=== PATIENT | male | born 1945 | race Caucasian/White ===

== ENCOUNTER 2018-04-26 23:02 | Inpatient (IN) | payer MEDICARE ==
[~2018-04-26] VITALS: Ht 185.4 cm; Wt 100.7 kg
[~2018-04-26 23:02] MED LIST: GLUCOTROL10 MG PO; GLUMETZA500 PO; PRINIVIL20 M1 PO; PRINIVIL20 MG PO; SIMVASTATIN40 MG; VERAPAMIL ER240 MG PO; VICTOZA0.6 MG/0.1
[2018-04-26 23:06] VITALS: BP 141/51
[2018-04-26] MEDS ORDERED: POTASSIUM20 PO (23:17)
[2018-04-26] MEDS ORDERED: CARDIZEM CD180 MG PO (23:18)
[2018-04-26] MEDS ORDERED: ZANTAC 150MG T150 MG PO (23:18)
[2018-04-26] MEDS ORDERED: SIMVASTATIN40 MG PO (23:21)
[2018-04-26 23:23] LABS: HEMATOCRIT 44.5 % (42.0-52.0); HEMOGLOBIN 14.9 gm/dL (14.0-18.0); MCH 31.5 pg (26.0-34.0); MCHC 33.5 g/dL (28.0-37.0); MCV 93.9 fL (80.0-100.0); MPV 11.7 fl. (7.2-11.1); NUCLEATED RBCS 0 /100WBC; PLATELET COUNT* 185 thou/uL (150-400); RBC 4.74 mil/uL (4.50-6.00); RDW-CV 13.7 % (10.5-14.5); WBC 16.2 thou/uL (4.0-11.0)
[2018-04-26 23:38] LABS: ANION GAP 3 mmol/L (7-16); BUN 13 mg/dL (7-18); CALCIUM 9.3 mg/dL (8.5-10.1); CHLORIDE 98 mmol/L (98-107); CO2 34 mmol/L (21-32); CREATININE 1.1 mg/dL (0.6-1.3); GLUCOSE 266 mg/dL (70-99); POTASSIUM 3.9 mmol/L (3.5-5.1); SODIUM 135 mmol/L (136-145)
[2018-04-26 23:43] LABS: ALBUMIN 3.5 g/dL (3.4-5.0); ALKALINE PHOSPHATASE 252 U/L (46-116); LIPASE 85 U/L (73-393); MAGNESIUM 1.4 mg/dL (1.8-2.4); NT-PRO BRAIN NAT PEPTIDE 70 pg/mL (<300); SGOT 256 U/L (15-37); SGPT 197 U/L (30-65); TOTAL BILIRUBIN 1.1 mg/dL (<0.1-1.0); TOTAL PROTEIN 6.9 g/dL (6.4-8.2); TROPONIN-I LEVEL <0.06 ng/mL (<0.06)
[2018-04-27] VITALS (7 sets, daily range): BP systolic 114–153; BP diastolic 38–67
[2018-04-27 01:08] LABS: ABSOLUTE LYMPHOCYTES 1.3 thou/uL (0.8-5.3); ABSOLUTE MONOCYTES 1.3 thou/uL (0.0-1.2); ABSOLUTE NEUTROPHILS 13.6 thou/uL (1.6-8.1)
[2018-04-27 01:10] LABS: PLATELET ESTIMATE ADEQUATE
[2018-04-27 01:11] LABS: LARGE PLATELETS FEW
[2018-04-27] MEDS ORDERED: CHLORTHALIDONE25 MG PO (06:41)
--- NOTE | 2018-04-27 12:05 | EKG ---
[place] [address] ELECTROCARDIOGRAM REPORT Name: TIERA SMYTH Room: [address] IN 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1945 Requested By: aClderon May Order Number: [id number] MD: Niko Cat Measurements Intervals [place] Rate: 59 P: 0 ME: 55 QRS: 71 QRSD: 157 T: 48 QT: 458 QTc: 454 Interpretive Statements Sinus rhythm Short ME interval Nonspecific intraventricular conduction delay Artifact in lead(s) II,III,aVR,aVL,aVF Compared to ECG 06/26/2012 08:32:37 Short ME interval now present Intraventricular conduction delay now present Sinus bradycardia no longer present Left ventricular hypertrophy no longer present Electronically Signed On 04-27-2018 12:05:30 CDT by Niko Cat [email or web address] <ELECTRONICALLY SIGNED> By: Niko Cat MD, FAC 04/27/18 1205 2314 2314 Niko Cat MD, [facility] /EPI
--- NOTE | 2018-04-27 12:06 | EKG ---
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1945 Requested By: Calderon May Order Number: [id number] Reading MD: Niko Cat Measurements Intervals [place] Rate: 58 P: -1 MN: 188 QRS: -20 QRSD: 100 T: 19 QT: 455 QTc: 447 Interpretive Statements Sinus rhythm Borderline left axis deviation Abnormal R-wave progression, early transition Compared to ECG 06/26/2012 08:32:37 Sinus bradycardia no longer present Left ventricular hypertrophy no longer present Electronically Signed On 04-27-2018 12:05:45 CDT by Niko Cat [email or web address] <ELECTRONICALLY SIGNED> By: Niko Cat MD, FACC 04/27/18 1205 2322 2322 Niko Cat MD, FAC /EPI
[2018-04-28] VITALS: BP 111/45
[2018-04-28 04:00] VITALS: BP 118/52
[2018-04-28 05:08] LABS: HEMATOCRIT 42.7 % (42.0-52.0); HEMOGLOBIN 14.1 gm/dL (14.0-18.0); MCH 31.4 pg (26.0-34.0); MPV 12.7 fl. (7.2-11.1); RBC 4.5 mil/uL (4.50-6.00); RDW-CV 13.8 % (10.5-14.5); WBC 8.2 thou/uL (4.0-11.0)
[2018-04-28 05:33] LABS: ALBUMIN 2.9 g/dL (3.4-5.0); CALCIUM 8.6 mg/dL (8.5-10.1); CREATININE 1.1 mg/dL (0.6-1.3); MAGNESIUM 1.6 mg/dL (1.8-2.4); POTASSIUM 3.8 mmol/L (3.5-5.1); TOTAL PROTEIN 5.5 g/dL (6.4-8.2)
[2018-04-28 08:25] VITALS: BP 120/57
[2018-04-28 11:43] VITALS: BP 122/61
[2018-04-28 14:30] LABS: INR 1.1
--- NOTE | 2018-04-28 19:21 | CARDNUC ---
[place] [address] CARDIAC NUCLEAR IMAGING REPORT Name: TIERA SMYTH Room: [address] IN [facility]#: [id number] Admission: 04/27/18 Attend Phys: Cordell Aguila Discharge: Date of : 45 Date of Service: 04/28/181920 Report #: [id number] THIS REPORT FOR: //name// APPROVED REPORT Study performed: 04/27/2018 11:59:00 Indication: Chest pain Patient Location: In-Patient Room #: 207 Stress Tech: She Rodriguez Stress Nurse: Juhi Hinojosa RN Ht: 6 ft 1 in Wt: 232 lbs BSA: 2.29 m2 BMI: 30.60 Medical History Medical History: Diabetes, HTN, Hyperlipidemia Medications: atorvastatin, diltiazem, lisinopril, asa Allergies: PCN Cardiac Risk Factors: Age, DM, HTN, Hyperlipidemia Exercise History: Sedentary Meds Held (24 hrs): - Resting Data Rest SPECT myocardial perfusion imaging was performed in supine position 45 minutes following the intravenous injection of 11.3 mCi of Tc-99m Sestamibi. Time of rest injection: 1450 Date: 04/28/2018 The images were gated to evaluate regional wall motion and calculate left ventricular ejection fraction. Administration Route: IV Administration Site: Right AC Pharmacologic Stress Pharmacologic stress test was performed by injecting Regadenoson 0.4 mg IV push over 10-15 seconds immediately followed by the intravenous injection of 33.5 mCi of Tc-99m Sestamibi. Time of stress injection: 1650 Date: 04/28/2018 Administration Route: IV Administration Site: Right AC Gated Stress SPECT was performed 45 minutes after stress injection. The images were gated to evaluate regional wall motion and calculate left [place] [address] CARDIAC NUCLEAR IMAGING REPORT Name: TIERA SMYTH Room: [address] IN ..#: [id number] Admission: 04/27/18 Attend Phys: Cordell Aguila Discharge: Date of : 45 Date of Service: 04/28/181920 Report #: [id number] Stress Test Details Stress Test: Pharmacologic stress testing performed using 0.4 mg of regadenoson per 5 mL given IV over 10 seconds. Reason for pharmacologic stress test: physical limitation. HR Max Heart Rate (APMHR): 148 bpm Resting HR: 65 bpm Target HR (85% APMHR): 125 bpm Max HR Achieved: 93 bpm % of APMHR: 62 Recovery HR: 78 bpm BP Resting BP: 135/68 mmHg Recovery BP: 122/59 mmHg ECG Resting ECG: Sinus Rhythm Stress ECG: Sinus Rhythm ST Change: None Arrhythmia: None Recovery ECG: Sinus Rhythm Recovery ST Change: None Recovery Arrhythmia: None Clinical Reason for Termination: Completed protocol Stress Symptoms: None Exercise duration: 0 min sec Exercise capacity: 1.0 METs Patient had no significant symptoms with Lexiscan infusion. Stress ECG Conclusion The baseline 12-lead EKG show sinus rhythm with no significant ST or T wave abnormalities. EKGs obtained during and post Lexiscan infusion show sinus rhythm with no significant ST or T wave changes when compared to baseline. There were no stress-induced arrhythmias. Study Quality Study: Good Artifact: No artifact Study Data At rest, the left ventricular ejection fraction was 75%.. Post stress, the left ventricular ejection was 77%.. [place] [address] CARDIAC NUCLEAR IMAGING REPORT Name: TIERA SMYTH Room: [address] IN [facility].#: [id number] Admission: 04/27/18 Attend Phys: Cordell Aguila Discharge: Date of : 45 Date of Service: 04/28/18 192 Report #: [id number] TID = 0.98. Perfusion Normal left ventricular perfusion. Wall Motion Normal left ventricular wall motion. Nuclear Conclusion ECG Findings: negative for ischemia Clinical Findings: negative for ischemia Nuclear Findings: negative for ischemia Exercise Capacity: not assessed Left Ventricular Function: normal Risk Study: low Myocardial perfusion images show uniform uptake of the radioisotope throughout the myocardium. There were no defects to suggest infarct or ischemia. Left ventricular systolic function appears normal on gated studies. This is a low risk study. <Conclusion> The baseline 12-lead EKG show sinus rhythm with no significant ST or T wave abnormalities. EKGs obtained during and post Lexiscan infusion show sinus rhythm with no significant ST or T wave changes when compared to baseline. There were no stress-induced arrhythmias. <ELECTRONICALLY SIGNED> By: Philip Rothman MD, FACC 04/28/181920 20 20 Philip Rothman MD, FACC /INF
[2018-04-28 20:00] VITALS: BP 136/63
[2018-04-29] VITALS (7 sets, daily range): BP systolic 120–139; BP diastolic 54–76
[2018-04-29 04:23] LABS: HEMATOCRIT 44.7 % (42.0-52.0); HEMOGLOBIN 14.9 gm/dL (14.0-18.0); MCH 31.5 pg (26.0-34.0); MCHC 33.4 g/dL (28.0-37.0); MCV 94.2 fL (80.0-100.0); RBC 4.74 mil/uL (4.50-6.00); RDW-CV 13.9 % (10.5-14.5); WBC 7.4 thou/uL (4.0-11.0)
[2018-04-29 04:38] LABS: CALCIUM 8.8 mg/dL (8.5-10.1); CREATININE 1.2 mg/dL (0.6-1.3); POTASSIUM 3.3 mmol/L (3.5-5.1); TOTAL BILIRUBIN 1.2 mg/dL (<0.1-1.0); TOTAL PROTEIN 6.5 g/dL (6.4-8.2)
[2018-04-29 04:42] LABS: DIRECT BILIRUBIN 0.8 mg/dL (<0.1-0.3); MAGNESIUM 1.8 mg/dL (1.8-2.4); PHOSPHORUS* 3.3 mg/dL (2.5-4.9)
[2018-04-30] VITALS: BP 116/50
[2018-04-30 05:07] LABS: HEMOGLOBIN 14.4 gm/dL (14.0-18.0); MCH 30.8 pg (26.0-34.0); MCHC 32.7 g/dL (28.0-37.0); MCV 94.2 fL (80.0-100.0); MPV 12.6 fl. (7.2-11.1); RBC 4.67 mil/uL (4.50-6.00); RDW-CV 13.7 % (10.5-14.5); WBC 9.5 thou/uL (4.0-11.0)
[2018-04-30 06:00] LABS: ALBUMIN 2.8 g/dL (3.4-5.0); CALCIUM 8.3 mg/dL (8.5-10.1); CREATININE 1.5 mg/dL (0.6-1.3); MAGNESIUM 1.9 mg/dL (1.8-2.4); POTASSIUM 3.9 mmol/L (3.5-5.1); TOTAL BILIRUBIN 0.8 mg/dL (<0.1-1.0); TOTAL PROTEIN 5.7 g/dL (6.4-8.2)
--- NOTE | 2018-04-30 07:29 | OP ---
[address] [address] OPERATIVE REPORT Name: TIERA SMYTH Room: [address] IN M.R.#: [id number] Admission: 04/27/18 Attend Phys: Bessie Harper Discharge: Date of : 45 Report #: [id number] THIS REPORT FOR: //name// CC: Leroy Aguila DICTATED BY: Jc Turner DO DATE OF SERVICE: 04/29/2018 PREOPERATIVE DIAGNOSES: Cholelithiasis, cholecystitis, possible obstruction. POSTOPERATIVE DIAGNOSES: Cholelithiasis, cholecystitis, possible obstruction. SURGEONS: Nancy Mercado DO; Jc Turner DO. CITY ROUTEMAN: Pepe Rust, PGY4. OPERATION PERFORMED: Laparoscopic cholecystectomy with intraoperative cholangiogram and surgeon interpretation of images. ANESTHESIA: General and local. ESTIMATED BLOOD LOSS: 10 mL. SPECIMEN REMOVED: Gallbladder. COMPLICATIONS: None. DISPOSITION: PACU to floor FLUOROSCOPY TIME: 55 seconds. INDICATIONS: The patient is a pleasant 72-year-old male that presented to [facility] with acute right upper quadrant and midepigastric abdominal pain. At the time of admission, his LFTs were all elevated. Workup did reveal cholelithiasis and further workup including MRCP showed cholelithiasis and cholecystitis without any evidence of biliary ductal dilation. The plan at that time was to go to the operating room for laparoscopic cholecystectomy with intraoperative cholangiogram. Risks and complications discussed include bleeding, infection, injury to surrounding structures, risk of anesthesia, possibility of needing a postoperative ERCP if the stones were to be found in the biliary ducts, and a possible open procedure. The patient acknowledged understanding of risks and agreed to proceed with surgery. The patient was then consented [place] [address] OPERATIVE REPORT Name: TIERA SMYTH Room: [address] IN [facility]#: [id number] Admission: 04/27/18 Attend Phys: Bessie Harper Discharge: Date of : 45 Report #: [id number] placed in supine position. SCDs placed on bilateral lower extremities. The patient had been on both Levaquin and Flagyl preoperatively for suspicion of cholecystitis and those antibiotics were discontinued. Safety belt was placed over the patient's waist. Anesthesia was administered without any complication. The patient was then prepped and draped in the standard sterile fashion. Timeout was performed to confirm the patient and procedure. An 11 blade scalpel was used to make a supraumbilical incision in a vertical fashion. Cautery was used for hemostasis. S retractors were used to bluntly dissect down to the level of the fascia. Fascia was grasped between 2 Kochers and scored with electrocautery. Cleo clamp was then inserted to bluntly enter the peritoneum. Two stitches of 0 Vicryl were placed on either side of the fascia. A 10 mm Saulo trocar was then inserted into the abdomen. Insufflation was then initiated without any complication. The camera was inserted into the abdomen. Intra-abdominal contents were inspected. The gallbladder could not be seen as it was underneath the liver and a layer of omentum. A second 12 mm port was placed subxiphoid under direct visualization. Grasper was then used to sweep the omentum caudad and the gallbladder could easily be seen at that time. Two other 5 mm trocars were then placed in the right upper quadrant under direct visualization. The gallbladder was elevated and it was clear at the time that it was acutely inflamed indicating cholecystitis. A needle was used to aspirate the gallbladder and 20 mL of purulent fluid were aspirated. After aspiration, the gallbladder was elevated and attention was turned towards the dissection and electrocautery was used to score some of the fat near Leroy's pouch. The fat was swept away revealing structures that were consistent with both duct and artery. These structures were easily freed up and a [place] dissector was easily passed behind these two structures. However, dissection was carried out further posterior to these structures to ensure that there were no other structures going into the gallbladder. After further dissection, both the artery and the cystic duct were easily seen going up into the gallbladder. In order to perform the cholangiogram, the cystic artery had to be clipped and cut prior to cholangiogram. A Alex clamp was then placed over the base of the gallbladder and needle was inserted into the cystic duct, normal saline was flushed easily and then the C-arm was brought in and fluoroscopy was initiated. Once fluoroscopy was in correct position, the contrast was injected into the cystic duct. Contrast could be seen moving down from the cystic duct down into the common bile duct and the duodenum. No stones were seen in the common bile duct or cystic duct. Clamp was then removed along with the catheter. Total fluoroscopy time was 55 seconds. The cystic duct was then clipped twice proximally and twice distally and cut with scissors. Hook cautery was then used to dissect the gallbladder up off the liver and to also ensure hemostasis. Once the gallbladder was removed, it was placed into a laparoscopic EndoCatch bag and attention was turned to the bed of the liver. There were some areas of spot bleeding, which were cauterized and complete hemostasis was assured. One sheet of Surgicel was also placed into the previous gallbladder fossa to [place] [address] OPERATIVE REPORT Name: TIERA SMYTH Room: [address] IN M.R.#: [id number] Admission: 04/27/18 Attend Phys: Bessie Harper Discharge: Date of : 45 Report #: [id number] again ensure hemostasis. Subxiphoid and right upper quadrant ports were removed under direct visualization and insufflation was released from the abdomen. Once hemostasis was ensured, the camera was removed from the abdomen. Due to the size of the gallbladder and its contents, it was difficult to remove through the supraumbilical incision. This incision had to be extended down to the level of the fascia and the gallbladder was removed. There was also an umbilical hernia that was noted. The hernia contents were removed from the umbilicus and pushed back into the abdomen. This fascia was cleaned off and the supraumbilical fascia was closed with 3 stitches of 0 Vicryl in a poodhe-eo-agybr fashion, 3-0 Vicryl was used to close the subcutaneous tissue at the supraumbilical incision and the subxiphoid incision. All skin incisions were closed with 4-0 Monocryl. Sterile dressings were applied over top. The patient tolerated the procedure well. Counts were correct x 2 at the end of the case. The patient was awoken from anesthesia without any complication and transferred to PACU in stable condition. <ELECTRONICALLY SIGNED> By: Nancy Mercado DO 04/30/18 0729 1638 1721Ccristhian Mercado DO /nt
[2018-04-30 08:00] VITALS: BP 116/44
[2018-04-30 15:52] VITALS: BP 117/48
--- NOTE | 2018-04-30 16:41 | CON ---
[address] [address] CONSULTATION Name: TIERA SMYTH Room: [address] IN M.R.#: [id number] Admission: 04/27/18 Attend Phys: Bessie Harper Discharge: Date of : 45 Report #: [id number] THIS REPORT FOR: //name// CC: Leroy Aguila DATE OF SERVICE: 04/28/2018 ADDENDUM: The patient with history of diabetes who has elevated liver function tests and thrombocytopenia. He had presented with chest pain, epigastric pain, and symptoms of nausea and vomiting, which have resolved. Since admission, he had an MRI of the abdomen, which revealed cholelithiasis and evidence of cholecystitis. There is no evidence of ductal dilatation or choledocholithiasis. The patient currently is going down for a stress test. He will need to treat his cholecystitis with antibiotics initially and then undergo laparoscopic cholecystectomy. We will talk to our surgical colleagues in reference to this. <ELECTRONICALLY SIGNED> By: Steffi Richardson MD 04/30/18 1641 1529 2217Steffi Richardson MD /nt
--- NOTE | 2018-04-30 16:41 | CON ---
[address] [address] CONSULTATION Name: TIERA SMYTH Room: [address] IN M.R.#: [id number] Admission: 04/27/18 Attend Phys: Bessie Harper Discharge: Date of : 45 Report #: [id number] THIS REPORT FOR: //name// CC: Leroy Aguila DICTATED BY: Bibiana CARPENTERP DATE OF SERVICE: 04/28/2018 Please note at the time of this dictation, the patient was seen and physically examined by myself. REASON FOR CONSULTATION: Nausea, vomiting, epigastric pain, and elevated LFTs. HISTORY OF PRESENT ILLNESS: This is a 72-year-old male presented with chief complaint of having chest pain and upper abdominal discomfort. He states it began while he was at rest. He states he does not worsen or improve with eating and he has had several of these episodes that had been self-resolving, but less severe, this one was more intense. He has not complained of any further nausea or vomiting. He denied any hematemesis or bright red blood with that and his pain has improved as well. However, on admission, his liver enzymes were slightly elevated. Total bilirubin at that admission was 1.1 and that has elevated over the last 24 hours. The patient has never had an EGD done. He does not complain of any acid reflux at this time. He had a colonoscopy he said 20 plus years ago and he says everything was okay at that time. ALLERGIES: PENICILLIN. HOME MEDICATIONS: Include aspirin, simvastatin, Zantac, Cardizem, K-Dur, metformin and lisinopril. PAST MEDICAL HISTORY: Diabetes, hypertension. PAST SURGICAL HISTORY: Vein stripping. FAMILY HISTORY: Negative for any GI or female cancers. SOCIAL HISTORY: . Denies any alcohol, tobacco or illegal drug use. REVIEW OF SYSTEMS: Twelve-point review of systems is essentially negative except what is mentioned in the HPI. PHYSICAL EXAMINATION: VITAL SIGNS: Temperature 36.7, pulse 56, respirations 20, [place] [address] CONSULTATION Name: TIERA SMYTH Room: [address] IN [facility]#: [id number] Admission: 04/27/18 Attend Phys: Bessie Harper Discharge: Date of : 45 Report #: [id number] 122/61. HEART: Regular rate and rhythm. LUNGS: Clear. ABDOMEN: Soft, positive bowel sounds in all 4 quadrants with no masses or tenderness noted at this time. He denies also any NSAID use. LABORATORY DATA: Hemoglobin 14.1, hematocrit 42.7, white count is 8.2, platelets 145. Sodium 141, potassium 3.8, chloride 103, CO2 36, BUN is 10, creatinine 1.1, GFR 66, glucose is 130. PT/INR pending. Total bilirubin on admission was 1.1, is now 3. Alkaline phosphatase on admission 252, is 251. ALT on admission 197, is 258 and AST was 256, he is down to 136. Ultrasound showed cholecystitis with gallbladder wall thickening and edema. CT showed no ductal dilatation, questionable stones in the gallbladder wall was similar to ultrasound imaging. There was also noted along the margin of the gallbladder, a nodule of 1.1 cm. IMPRESSION: 1. Epigastric and chest pain. 2. Nausea and vomiting, which is improved. 3. Elevated liver function tests. 4. Thrombocytopenia. PLAN: 1. Stress pending today at 1600. 2. MRCP to fully evaluate his elevation in his LFTs. 3. PT and INR. 4. Further recommendations to be made once the stress test has been performed. Thank you for allowing us to participate in this patient's care. Please do not hesitate to call with any questions in regard to this consult. ADDENDUM: The patient with history of diabetes who has elevated liver function tests and thrombocytopenia. He had presented with chest pain, epigastric pain, and symptoms of nausea and vomiting, which have resolved. Since admission, he had an MRI of the abdomen, which revealed cholelithiasis and evidence of cholecystitis. There is no evidence of ductal dilatation or choledocholithiasis. The patient currently is going down for a stress test. He will need to treat his cholecystitis with antibiotics initially and then undergo laparoscopic cholecystectomy. We will talk to our surgical colleagues in reference to this. <ELECTRONICALLY SIGNED> By: Steffi Richardson MD 04/30/18 1641 1259 1322Steffi Richardson MD /nt
[2018-04-30 20:00] VITALS: BP 143/63
[2018-05-01 04:00] VITALS: BP 101/35
[2018-05-01 04:24] LABS: CALCIUM 7.8 mg/dL (8.5-10.1); CREATININE 1.6 mg/dL (0.6-1.3); MAGNESIUM 1.9 mg/dL (1.8-2.4); POTASSIUM 3.9 mmol/L (3.5-5.1)
[2018-05-01 08:00] VITALS: BP 121/45
[2018-05-01] MEDS ORDERED: COLACE100 MG PO (08:12)
[2018-05-01] MEDS ORDERED: ASPIR 8181 MG PO (08:12)
[2018-05-01 10:05] VITALS: BP 121/45
[2018-05-01] MEDS ORDERED: HYDROCODON-ACE1 EA11 PO (10:08)
--- NOTE | 2018-05-06 07:49 | PATH ---
[address] [address] PATHOLOGY RPT PROCEDURE Name: JEFFERY NEAL Room: [address] IN M.R.#: [id number] Admission: 04/27/18 Date of : 45 Discharge: 05/01/18 Report #: [id number] Path Case #: [id number] [facility] Accession Number: [id number] . 01 Material submitted: . GALLBLADDER WITH CONTENTS . 01 Clinical history: . Cholelithiasis . 02 Diagnosis: Gallbladder "gallbladder with contents, cholecystectomy": - Moderate chronic cholecystitis arising in the background of subacute cholecystitis. - Cholelithiasis. . (SHA:mml; 05/01/18) [facility]/05/01/2018 . 02 Electronically signed: . Benji Knight MD, Pathologist NPI- [id number] . 01 Gross description: . Received in formalin labeled "Jeffery Neal, gallbladder w/ contents," is an intact gallbladder measuring 10.1 x 5.0 x 3.6 cm in greatest dimensions. The serosal surface is smooth to shaggy and pink-baltazar to dark brown and partially fibroadipose-covered in appearance. Opening the specimen reveals a granular, light yellow-baltazar mucosal surface with an average wall thickness of 0.1 cm. A granular, yellow-baltazar sludge is present inside the specimen that is partially adherent to the mucosal surface. A single granular, dark brown calculus is noted, measuring 0.6 cm in maximum dimension. No lesions or polyps are identified grossly. Men'S Designer sections of the infundibulum, body and fundus are submitted in cassette A1. (DAC; 04/30/2018) XDC/XDC . 02 Pathologist provided ICD-10: K80.12 . 02 CPT . 579416 Performed at: [address] [id number] MD Ramon Jensen MD Phone: [phone] Performed at: 02 [place] [address] PATHOLOGY RPT PROCEDURE Name: JEFFERY NEAL Jakub Room: [address] IN M.R.#: [id number] Admission: 04/27/18 Date of : 45 Discharge: 05/01/18 Report #: [id number] Path Case #: [id number] [facility] [address] [place] [id number] MD Bala Oliva MD Phone: [phone]
--- NOTE | 2018-05-15 10:52 | CON ---
[address] [address] CONSULTATION Name: TIERA SMYTH Room: [address] IN M.R.#: [id number] Admission: 04/27/18 Attend Phys: Bessie Harper Discharge: 05/01/18 Date of : 45 Report #: [id number] THIS REPORT FOR: //name// CC: Leroy Aguila DATE OF SERVICE: 04/27/2018 REQUESTING PHYSICIAN: Cordell Aguila DO REASON FOR CONSULTATION: Chest pain. HISTORY OF PRESENT ILLNESS: The patient is a 72-year-old male who has insulin requiring diabetes, presents with a central episode of chest discomfort, rather severe in nature, 7-8/10. It would radiate downward to his stomach. It was associated with mild diaphoresis, but he was not short of breath or having any palpitations. It lasted about 30 minutes long. He went to the Emergency Room and his symptoms had mostly resolved and his presenting ECG was unremarkable. Because of his risk factors, he was admitted. Cardiac troponin level this morning is normal and currently he is asymptomatic. Overnight on telemetry he has been in a sinus rhythm. Historically he denies exertional chest pain, pressure, shortness of breath or edema. He has no documented history of heart disease. He does have numerous cardiovascular risk factors. PAST MEDICAL HISTORY: Significant for diabetes mellitus, hypertension, hyperlipidemia. HOME MEDICATIONS: Include metformin, Glumetza 2 grams p.o. b.i.d.; potassium chloride 20 mEq daily, Cardizem 180 mg daily, ranitidine 150 mg daily, Zocor 40 mg daily, lisinopril 20 mg daily, and chlorthalidone 25 mg daily. PAST SURGICAL HISTORY: He had a thrombectomy surgery about 23 years ago. SOCIAL HISTORY: He is a former smoker, does not drink. REVIEW OF SYSTEMS: GASTROINTESTINAL: No hematemesis or melena. GENITOURINARY: No dysuria or hematuria. CARDIOVASCULAR: No exertional chest pressure, sinus, but has shortness of breath. [place] [address] CONSULTATION Name: TEIRA SMYTH Room: [address]#: [id number] Admission: 04/27/18 Attend Phys: Bessie Harper Discharge: 05/01/18 Date of : 45 Report #: [id number] NEUROLOGIC: Denies headaches, blurry vision, slurred speech, numbness. HEMATOLOGIC: No anemia. GENERAL: No fevers or chills. PULMONARY: No history of emphysema. ENDOCRINE: Positive diabetes. No history of thyroid disease. Positive hyperlipidemia. PHYSICAL EXAMINATION: VITAL SIGNS: Blood pressure is 117/57, pulse is 66, O2 sat 95% on 2 liters. GENERAL: This is a pleasant elderly male who is alert, in no apparent distress. HEENT: Eyes, EOMs intact. No facial asymmetry. NECK: Supple. No jugular venous distention. CARDIOVASCULAR: Regular, I cannot hear a murmur. LUNGS: Clear to auscultation. ABDOMEN: Nontender. EXTREMITIES: No peripheral edema. Electrocardiogram shows sinus rhythm, borderline LVH, nonspecific ST-segment changes. LABORATORY DATA: Hemoglobin is 14.9, white blood cell count 16.2, platelet count is 185,000. Sodium is 135, potassium is 3.9, chloride is 98, CO2 is 34, BUN is 13, creatinine is 1.1. A1c is 9.1. AST is 256, ALT is 197. Troponin I is 0.06. IMAGING: CT of the abdomen and pelvis, findings are suspicious for cholecystitis, gallbladder thickening, enlarged and there are gallstones. IMPRESSION: 1. Chest pain. He has numerous cardiovascular risk factors and he may need gallbladder surgery, so I evaluated him with a Lexiscan stress test. For the time being we will continue with aspirin. 2. Insulin requiring diabetes mellitus. Continue with sliding scale. 3. Cholelithiasis, cholecystitis. There is thickening of the gallbladder wall and gallstones. If his stress test is normal he will likely need a GI and surgical evaluation. 4. Hypertension. Continue with medical therapy. 5. Hyperlipidemia. Continue with medical therapy. <ELECTRONICALLY SIGNED> By: Niko Cat MD, FACC 05/15/18 1052 1152 [id number] Cat MD, FACC /nt
== END 2018-05-01 11:55 | disposition home or self-care (01) | DRG 853 ==
LOC: M.ERS 23:02 → M.TBA-ER 04-27 00:47 → M.2W 04-27 00:47
PROVIDERS: Emergency Medicine Emergency Medical Services; Internal Medicine; Nurse Practitioner Adult Health; Surgery; ADMIT Internal Medicine
PROC: 0FT44ZZ Resection of Gallbladder, Percutaneous Endoscopic Approach (ICD-10-PCS; principal; 2018-04-29)
PROC: BF12YZZ Fluoroscopy of Gallbladder using Other Contrast (ICD-10-PCS; principal; 2018-04-29)
DX: A41.9 Sepsis, unspecified organism (principal); G92 Toxic encephalopathy; K80.01 Calculus of gallbladder with acute cholecystitis with obstruction; N17.9 Acute kidney failure, unspecified; E78.00 Pure hypercholesterolemia, unspecified; E11.9 Type 2 diabetes mellitus without complications; I10 Essential (primary) hypertension; E78.5 Hyperlipidemia, unspecified; D69.6 Thrombocytopenia, unspecified; E87.6 Hypokalemia; R33.9 Retention of urine, unspecified; Z79.4 Long term (current) use of insulin; Z88.0 Allergy status to penicillin; Z87.891 Personal history of nicotine dependence; Z79.82 Long term (current) use of aspirin; Z79.899 Other long term (current) drug therapy

== ENCOUNTER 2019-11-23 18:24 | Emergency (ER) | payer MEDICARE ==
[~2019-11-23] VITALS: Ht 177.8 cm; Wt 90.7 kg
[~2019-11-23 18:24] MED LIST changes: +ASPIR 8181 MG PO; +CARDIZEM CD180 MG PO; +CHLORTHALIDONE25 MG PO; +COLACE100 MG PO; +HYDROCODON-ACE1 EA11 PO; +POTASSIUM20 PO; +SIMVASTATIN40 MG PO; +ZANTAC 150MG T150 MG PO
[2019-11-23] MEDS ORDERED: NORCO 5-325 TA1 EAC1 PO (22:13)
[2019-11-23] MEDS ORDERED: ULTRA-LIGHT RO1 EACH MISCELL (22:16)
[2019-11-23] MEDS ORDERED: KEFLEX500 M1 PO (23:24)
[2019-11-23 23:28] VITALS: BP 122/75
== END 2019-11-23 23:28 | disposition home or self-care (01) ==
LOC: M.ERS 18:24
DX: S82.192A Other fracture of upper end of left tibia, initial encounter for closed fracture (principal); S01.512A Laceration without foreign body of oral cavity, initial encounter; S16.1XXA Strain of muscle, fascia and tendon at neck level, initial encounter; S63.592A Other specified sprain of left wrist, initial encounter; S80.02XA Contusion of left knee, initial encounter; I10 Essential (primary) hypertension; E11.9 Type 2 diabetes mellitus without complications; E78.00 Pure hypercholesterolemia, unspecified; Z98.890 Other specified postprocedural states; Z88.0 Allergy status to penicillin; W01.0XXA Fall on same level from slipping, tripping and stumbling without subsequent striking against object, initial encounter; Y93.01 Activity, walking, marching and hiking; Y92.89 Other specified places as the place of occurrence of the external cause; Y99.8 Other external cause status

== ENCOUNTER 2021-02-10 20:02 | Observation (INO) | payer MEDICARE ==
[~2021-02-10] VITALS: Ht 180.3 cm; Wt 99.1 kg
[~2021-02-10 20:02] MED LIST changes: +KEFLEX500 M1 PO; +NORCO 5-325 TA1 EAC1 PO; +ULTRA-LIGHT RO1 EACH MISCELL
[2021-02-10 20:20] VITALS: BP 142/59
[2021-02-10 20:40] LABS: ABSOLUTE BASOPHILS 0.1 thou/uL (0.0-0.2); ABSOLUTE LYMPHOCYTES 2.2 thou/uL (0.8-5.3); ABSOLUTE MONOCYTES 1.2 thou/uL (0.0-1.2); BASOPHILS 0.9 %; EOSINOPHILS 0.3 %; HEMATOCRIT 45.4 % (42.0-52.0); HEMOGLOBIN 15.4 gm/dL (14.0-18.0); LYMPHOCYTES 23.4 %; MPV 10.9 fl. (7.2-11.1); NUCLEATED RBCS 0 /100WBC; PLATELET COUNT* 164 thou/uL (150-400); POLYS 62.4 %; RBC 4.99 mil/uL (4.50-6.00); RDW-CV 13.7 % (10.5-14.5); WBC 9.6 thou/uL (4.0-11.0)
[2021-02-10 20:51] LABS: CALCIUM 8.8 mg/dL (8.5-10.1); CREATININE 1.2 mg/dL (0.6-1.3)
[2021-02-10 20:52] LABS: POTASSIUM 2.9 mmol/L (3.5-5.1)
[2021-02-10 20:53] LABS: PROTIME 11.1 Seconds (9.20-11.50)
[2021-02-10 21:01] LABS: ALBUMIN 3.9 g/dL (3.4-5.0); MAGNESIUM 1.3 mg/dL (1.8-2.4); TOTAL BILIRUBIN 0.9 mg/dL (<0.1-1.0); TOTAL PROTEIN 7.2 g/dL (6.4-8.2)
[2021-02-10] MEDS ORDERED: HYDROCHLOROTH12.5 M2 PO (21:25)
[2021-02-10 23:15] VITALS: BP 132/65
[2021-02-10 23:19] LABS: URINE BILIRUBIN NEGATIVE (Negative); URINE BLOOD NEGATIVE (Negative); URINE CLARITY CLEAR; URINE COLOR YELLOW; URINE GLUCOSE-RANDOM 2+ (Negative); URINE KETONES TRACE (Negative); URINE LEUKOCYTES-REFLEX NEGATIVE (Negative); URINE NITRITE-REFLEX NEGATIVE (Negative); URINE PROTEIN NEGATIVE (Negative); URINE SPECIFIC GRAVITY 1.015 (1.005-1.030); URINE UROBILINOGEN 0.2 E.U./dl (0.2-1.0)
[2021-02-10 23:26] LABS: AMP/METHAMP Negative (Negative); BARBITURATES Negative (Negative); BENZODIAZEPINES Negative (Negative); COCAINE Negative (Negative); METHADONE Negative (Negative); OPIATES Negative (Negative); PCP Negative (Negative); THC Negative (Negative)
[2021-02-10 23:30] VITALS: BP 129/60
--- NOTE | 2021-02-11 04:20 | NUR ---
RECEIVED PT FROM ED AT APPROX 2325.PT IS AWAKE, ORIENTED TO SELF AND PLACE, CONFUSED AND FORGETFUL MOST OF THE TIME, BUT REDIRECTABLE. PT IS NOT IN DISTRESS, NO DESATURATIONS NOTED ON ROOM AIR. 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 PT DENIES PAIN. ADMISSION ASSESSMENT DONE AND CHARTED. PT IS ORIENTED ON ROOM SET UP AND ON THE USE OF CALL LIGHT. HIGH FALL PRECAUTIONS IN PLACE. PT'S ROOM NEXT TO NURSES STATION FOR SAFETY.
[2021-02-11 04:50] VITALS: BP 124/53
[2021-02-11 08:00] VITALS: BP 125/58
[2021-02-11 08:24] LABS: MAGNESIUM 1.6 mg/dL (1.8-2.4)
[2021-02-11 08:25] LABS: POTASSIUM 2.6 mmol/L (3.5-5.1)
[2021-02-11 11:30] VITALS: BP 125/53
[2021-02-11 13:47] VITALS: BP 125/58
[2021-02-11 14:06] LABS: CALCIUM 8.7 mg/dL (8.5-10.1); CREATININE 0.8 mg/dL (0.6-1.3); MAGNESIUM 2.1 mg/dL (1.8-2.4)
--- NOTE | 2021-02-11 16:38 | NUR ---
CM ASSESSMENT: CM SPOKE TO THE PT AND SON AT THE BEDSIDE. PT'S SON ANSWERING ALL ASSESSMENT QUESTIONS. PT NORMALLY A&O, INDPENDENT WITH ADL'S, AND DRIVES. PT SON INFORMS THAT HE HAS NOTICED THE PT BEING MORE FORGETFUL LATELY. PT RESIDES AT HOME ALONE. PT USES A CANE FOR MOBILITY. PT HAS 0 H X OF HH OR SNF. PT AND SON OPEN TO AT D/C WITH [facility]. CM FAXED [facility] PT'S CLINCIAL INFO AND D/C HH ORDERS. [facility] WILL CONTACT PT'S SON TO ARRANGE VISIT. CM WILL REMAIN AVAILABLE TO ASSIST AND FOLLOW NEEDED. [facility] PHONE: [phone] FAX: [phone]
[2021-02-11 17:16] VITALS: BP 125/58
--- NOTE | 2021-02-11 17:30 | NUR ---
RECEIVED REPORT.ASSUMED CARE OF PT AROUND 0730. AM ASSESSMENT AND VITALS COMPLETED CHARTED, MEDS PER EMAR. CHILDHOOD DEVELOPMENT TEACHER IN PLACE. DOCTORS ROUNDED - DC ORDERS RECEIVED. DISCHARGE COMPLETED DOCUMENTED. EXTENSIVE TIME SPENT ATTEMPTING TO CLARIFY PT'S MEDICATION LIST, HOWEVER HOME MED LIST DID NOT MATCH WITH PHARMACY FILL LIST/RECORDS - AND BOTH SONS LISTED DIFFERENT MEDICATIONS THEIR FATHER WAS ON. PT AND FAMILY ADVISED TO CLARIFY HOME MEDS WITH PCP FABIOLA. IV AND CHILDHOOD DEVELOPMENT TEACHER REMOVED. ALL BELONGINGS GATHERED AND SENT HOME WITH PT. PT LEFT HOSPITAL IN WC WITH NURSING STAFF. PT LEFT IN CAR WITH SON.
--- NOTE | 2021-02-13 15:14 | EKG ---
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 : 1945 Requested By: Elysia Taylor Order Number: [id number] MD: Eduardo Chu Measurements Intervals [place] Rate: 76 P: -17 [place]: 127 QRS: -7 QRSD: 89 T: QT: 506 QTc: 570 Interpretive Statements Sinus rhythm Abnormal R-wave progression, early transition Borderline T abnormalities, diffuse leads Prolonged QT interval Artifact in lead(s) V1 Compared to ECG 04/26/2018 23:22:02 T-wave abnormality now present Prolonged QT interval now present Electronically Signed On 02-13-2021 15:14:41 CDT by Eduardo Chu [email or web address] <ELECTRONICALLY SIGNED> By: Eduardo Chu MD, [facility] 02/13/21 1514 35 35 Eduardo Chu MD, [facility] /EPI
== END 2021-02-11 17:30 | disposition home health service (06) ==
LOC: M.ERS 20:02 → M.2W 21:25 → M.TBA-ER 21:25 → M.2W 23:23
PROVIDERS: Emergency Medicine; Internal Medicine; ADMIT Internal Medicine; ATTEND Internal Medicine
DX: E87.6 Hypokalemia (principal); F28 Other psychotic disorder not due to a substance or known physiological condition; E83.42 Hypomagnesemia; Z20.822 Contact with and (suspected) exposure to COVID-19; E78.00 Pure hypercholesterolemia, unspecified; E11.9 Type 2 diabetes mellitus without complications; Z79.4 Long term (current) use of insulin; I10 Essential (primary) hypertension; Z79.82 Long term (current) use of aspirin; Z88.0 Allergy status to penicillin

== ENCOUNTER 2021-03-17 10:12 | Inpatient (IN) | payer MEDICARE ==
[~2021-03-17] VITALS: Ht 185.4 cm; Wt 94.1 kg
[~2021-03-17 10:12] MED LIST changes: +HYDROCHLOROTH12.5 M2 PO
[2021-03-17 10:22] VITALS: BP 137/74
[2021-03-17 10:58] LABS: HEMATOCRIT 41.4 % (42.0-52.0); HEMOGLOBIN 14.1 gm/dL (14.0-18.0); MCH 31.6 pg (26.0-34.0); MCV 93.1 fL (80.0-100.0); NUCLEATED RBCS 0 /100WBC; PLATELET COUNT* 151 thou/uL (150-400); RBC 4.45 mil/uL (4.50-6.00); WBC 22.2 thou/uL (4.0-11.0)
[2021-03-17 11:18] LABS: ALBUMIN 3.2 g/dL (3.4-5.0); CALCIUM 8.3 mg/dL (8.5-10.1); CREATININE 1.1 mg/dL (0.6-1.3); TOTAL BILIRUBIN 1.2 mg/dL (<0.1-1.0); TOTAL PROTEIN 6.9 g/dL (6.4-8.2)
[2021-03-17 11:27] LABS: ABSOLUTE LYMPHOCYTES 1.6 thou/uL (0.8-5.3); ABSOLUTE MONOCYTES 1.8 thou/uL (0.0-1.2); ABSOLUTE NEUTROPHILS 18.9 thou/uL (1.6-8.1); PLATELET ESTIMATE ADEQUATE
[2021-03-17 14:20] VITALS: BP 124/60
[2021-03-17 14:45] VITALS: BP 138/60
[2021-03-17] MEDS ORDERED: LOPERAMIDE 2 MG2 M1 PO (15:28)
--- NOTE | 2021-03-17 16:47 | EKG ---
[place] [address] ELECTROCARDIOGRAM REPORT Name: TIERA SMYTH Room: [address] ADM IN ..#: [id number] Admission: 03/17/21 Attend Phys: Lm Escoto, Discharge: Date of : 45 Date of Service: 03/17/21 1052 Report #: [id number] THIS REPORT FOR: //name// 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 : 1945 Requested By: Lars Archibald Order Number: [id number] MD: Eduardo Chu Measurements Intervals [place] Rate: 81 P: -18 [place]: 176 QRS: -16 QRSD: 87 T: 34 QT: 375 QTc: 436 Interpretive Statements Sinus rhythm Atrial premature complex Low voltage, precordial leads LVH by voltage Artifact in lead(s) I,III,aVL Compared to ECG 02/10/2021 20:36:14 Atrial premature complex(es) now present Low QRS voltage now present Left ventricular hypertrophy now present Q waves now present T-wave abnormality no longer present Prolonged QT interval no longer present Electronically Signed On 03-17-2021 16:47:34 CDT by Eduardo Chu [email or web address] <ELECTRONICALLY SIGNED> By: Eduardo Chu MD, [facility] 03/17/21 1647 1052 1052 Eduardo Chu MD, [facility] /EPI
[2021-03-17 20:35] VITALS: BP 108/69
[2021-03-18 04:13] LABS: ABSOLUTE LYMPHOCYTES 1.6 thou/uL (0.8-5.3); ABSOLUTE MONOCYTES 1.2 thou/uL (0.0-1.2); ABSOLUTE NEUTROPHILS 16.6 thou/uL (1.6-8.1); BASOPHILS 0.1 %; EOSINOPHILS 0.1 %; HEMOGLOBIN 13.5 gm/dL (14.0-18.0); LYMPHOCYTES 8.2 %; MCH 31.4 pg (26.0-34.0); MCHC 33.8 g/dL (28.0-37.0); MCV 92.7 fL (80.0-100.0); MONOCYTES 6.4 %; MPV 11.8 fl. (7.2-11.1); NUCLEATED RBCS 0 /100WBC; PLATELET COUNT* 168 thou/uL (150-400); POLYS 85.2 %; RBC 4.31 mil/uL (4.50-6.00); WBC 19.5 thou/uL (4.0-11.0)
[2021-03-18 04:25] LABS: CALCIUM 8.4 mg/dL (8.5-10.1); CREATININE 1.1 mg/dL (0.6-1.3); POTASSIUM 3.7 mmol/L (3.5-5.1)
[2021-03-18 07:35] VITALS: BP 146/75
[2021-03-18 16:00] VITALS: BP 139/73
[2021-03-18 20:30] VITALS: BP 129/81
[2021-03-19 04:01] LABS: ABSOLUTE LYMPHOCYTES 1.3 thou/uL (0.8-5.3); ABSOLUTE MONOCYTES 0.9 thou/uL (0.0-1.2); ABSOLUTE NEUTROPHILS 8.1 thou/uL (1.6-8.1); BASOPHILS 0.2 %; EOSINOPHILS 0.4 %; HEMATOCRIT 37.2 % (42.0-52.0); HEMOGLOBIN 12.8 gm/dL (14.0-18.0); LYMPHOCYTES 12.8 %; MCH 32.1 pg (26.0-34.0); MCHC 34.5 g/dL (28.0-37.0); MCV 92.9 fL (80.0-100.0); MONOCYTES 8.7 %; MPV 11.9 fl. (7.2-11.1); NUCLEATED RBCS 0 /100WBC; PLATELET COUNT* 144 thou/uL (150-400); POLYS 77.9 %; RDW-CV 14.1 % (10.5-14.5); WBC 10.4 thou/uL (4.0-11.0)
[2021-03-19 04:21] LABS: ALBUMIN 2.9 g/dL (3.4-5.0); CALCIUM 8.4 mg/dL (8.5-10.1); CREATININE 1.3 mg/dL (0.6-1.3); POTASSIUM 3.7 mmol/L (3.5-5.1); TOTAL BILIRUBIN 0.6 mg/dL (<0.1-1.0); TOTAL PROTEIN 6.9 g/dL (6.4-8.2)
[2021-03-19 07:35] VITALS: BP 106/56
[2021-03-19 16:18] VITALS: BP 136/75
[2021-03-19 20:45] VITALS: BP 125/62
[2021-03-20 04:18] LABS: ABSOLUTE LYMPHOCYTES 1.6 thou/uL (0.8-5.3); ABSOLUTE MONOCYTES 1.1 thou/uL (0.0-1.2); ABSOLUTE NEUTROPHILS 4.7 thou/uL (1.6-8.1); BASOPHILS 0.3 %; EOSINOPHILS 0.6 %; HEMATOCRIT 39.3 % (42.0-52.0); HEMOGLOBIN 13.3 gm/dL (14.0-18.0); LYMPHOCYTES 21.9 %; MCH 31.5 pg (26.0-34.0); MCHC 33.9 g/dL (28.0-37.0); MCV 93.1 fL (80.0-100.0); MPV 11.7 fl. (7.2-11.1); NUCLEATED RBCS 0 /100WBC; PLATELET COUNT* 177 thou/uL (150-400); POLYS 63.2 %; RBC 4.22 mil/uL (4.50-6.00); RDW-CV 13.8 % (10.5-14.5); WBC 7.5 thou/uL (4.0-11.0)
[2021-03-20 05:05] LABS: ALBUMIN 2.8 g/dL (3.4-5.0); CALCIUM 8.7 mg/dL (8.5-10.1); CREATININE 1.2 mg/dL (0.6-1.3); POTASSIUM 3.1 mmol/L (3.5-5.1); TOTAL BILIRUBIN 0.6 mg/dL (<0.1-1.0); TOTAL PROTEIN 6.7 g/dL (6.4-8.2)
[2021-03-20 07:00] VITALS: BP 110/53
[2021-03-20 16:25] VITALS: BP 116/70
[2021-03-20 19:45] VITALS: BP 124/70
[2021-03-21 04:32] LABS: ALBUMIN 2.6 g/dL (3.4-5.0); CALCIUM 8.1 mg/dL (8.5-10.1); CREATININE 1.1 mg/dL (0.6-1.3); TOTAL BILIRUBIN 0.5 mg/dL (<0.1-1.0); TOTAL PROTEIN 5.8 g/dL (6.4-8.2)
[2021-03-21 04:35] LABS: ABSOLUTE EOSINOPHILS 0.1 thou/uL (0.0-0.7); ABSOLUTE LYMPHOCYTES 1.5 thou/uL (0.8-5.3); ABSOLUTE MONOCYTES 0.8 thou/uL (0.0-1.2); ABSOLUTE NEUTROPHILS 4.3 thou/uL (1.6-8.1); BASOPHILS 0.3 %; EOSINOPHILS 1.3 %; HEMATOCRIT 36.2 % (42.0-52.0); HEMOGLOBIN 12.4 gm/dL (14.0-18.0); LYMPHOCYTES 22.8 %; MCH 31.5 pg (26.0-34.0); MCHC 34.4 g/dL (28.0-37.0); MCV 91.7 fL (80.0-100.0); MONOCYTES 11.4 %; MPV 11.3 fl. (7.2-11.1); NUCLEATED RBCS 0 /100WBC; PLATELET COUNT* 164 thou/uL (150-400); POLYS 64.2 %; RBC 3.95 mil/uL (4.50-6.00); RDW-CV 13.5 % (10.5-14.5); WBC 6.8 thou/uL (4.0-11.0)
[2021-03-21 04:46] LABS: POTASSIUM 2.5 mmol/L (3.5-5.1)
[2021-03-21 04:47] LABS: PREALBUMIN 16.2 mg/dL (18.0-35.7)
[2021-03-21 07:00] VITALS: BP 118/63
[2021-03-21 11:29] VITALS: BP 118/63
[2021-03-21] MEDS ORDERED: LEVOFLOXACIN500 MG PO (12:42)
[2021-03-21] MEDS ORDERED: CLEOCIN HCL300 MG PO (12:42)
[2021-03-21 12:43] VITALS: BP 118/63
== END 2021-03-21 13:00 | disposition home health service (06) | DRG 872 ==
LOC: M.ERS 10:12 → M.ORTHSURG 10:57 → M.TBA-ER 10:57 → M.ORTHSURG 14:59
PROVIDERS: Family Medicine; ADMIT Internal Medicine; ATTEND Internal Medicine
DX: A41.9 Sepsis, unspecified organism (principal); L03.116 Cellulitis of left lower limb; E44.1 Mild protein-calorie malnutrition; Z20.822 Contact with and (suspected) exposure to COVID-19; E78.00 Pure hypercholesterolemia, unspecified; I10 Essential (primary) hypertension; F03.90 Unspecified dementia, unspecified severity, without behavioral disturbance, psychotic disturbance, mood disturbance, and anxiety; E11.9 Type 2 diabetes mellitus without complications; Z79.4 Long term (current) use of insulin; Z88.0 Allergy status to penicillin; W55.03XA Scratched by cat, initial encounter; Y93.89 Activity, other specified; Y92.89 Other specified places as the place of occurrence of the external cause; Y99.8 Other external cause status; Z87.891 Personal history of nicotine dependence; Z79.82 Long term (current) use of aspirin; Z79.899 Other long term (current) drug therapy; Z68.27 Body mass index [BMI] 27.0-27.9, adult

== ENCOUNTER → 2021-04-19 | Outpatient (CLI) | payer MEDICARE ==
[~2021-04-19] MED LIST changes: +CLEOCIN HCL300 MG PO; +LEVOFLOXACIN500 MG PO; +LOPERAMIDE 2 MG2 M1 PO
--- NOTE | 2021-04-19 16:02 | 2DMMODE ---
[place] [address] 2 D/M-MODE ECHOCARDIOGRAM Name: TIERA SMYTH Room: [facility]#: [id number] Admission: 04/19/21 Attend Phys: Ramonita Ashford, Discharge: Date of : 45 Date of Service: 04/19/21 1602 Report #: [id number] THIS REPORT FOR: cc: Leroy Sanchez MD, Jason MD Holkins,Eduardo Sharma MD [facility] ~ APPROVED REPORT Study performed: 04/19/2021 11:00:11 EXAM: Comprehensive 2D, Doppler, and color-flow Echocardiogram BSA: 2.12 HR: 42 bpm BP: 112/70 mmHg Other Information Study Quality: Good Indications Atrial Fibrillation 2D Dimensions IVSd: 15.74 (7-11mm) LVOT Diam: 20.77 (18-24mm) LVDd: 38.85 mm PWd: 10.34 (7-11mm) Ascending Ao: 34.35 (22-36mm) LVDs: 28.70 (25-40mm) Aortic Root: 30.70 mm Volumes Left Atrial Volume (Systole) LA ESV Index: 34.60 mL/m2 Aortic Valve AoV Peak Steven.: 1.16 m/s AO Peak Gr.: 5.39 mmHg LVOT Max P.31 mmHg AO Mean Gr.: 2.91 mmHg LVOT Mean P.46 mmHg LVOT Max V: 0.91 m/s AO V2 VTI: 27.75 cm LVOT Mean V: 0.54 m/s JENNIFER (VTI): 2.91 cm2 LVOT V1 VTI: 23.87 cm Mitral Valve E/A Ratio: 1.13 MV Decel. Time: 213.41 [place] [address] 2 D/M-MODE ECHOCARDIOGRAM Name: TIERA SMYTH Room: [facility]#: [id number] Admission: 04/19/21 Attend Phys: Ramonita Ashford, Discharge: Date of : 45 Date of Service: 04/19/21 1602 Report #: [id number] MV E Max Steven.: 0.77 m/s MV PHT: 61.89 ms MVA (PHT): 3.55 cm2 TDI E/Lateral E': 7.70 E/Medial E': 7.70 Medial E' Steven.: 0.10 m/s Lateral E' Steven.: 0.10 m/s Pulmonary Valve PV Peak Steven.: 0.96 m/s PV Peak Gr.: 3.70 mmHg Tricuspid Valve RAP Estimate: 5.00 mmHg TR Peak Gr.: 27.54 mmHg RVSP: 32.54 mmHg PA Pressure: 32.54 mmHg Left Ventricle The left ventricle is normal size. There is normal LV segmental wall motion. There is normal left ventricular wall thickness. Left ventricular systolic function is normal. The left ventricular ejection fraction is within the normal range. LVEF is 55-60%. This study is not technically sufficient to allow evaluation of the LV diastolic function due to atrial fibrillation. Right Ventricle The right ventricle is normal size. The right ventricular systolic function is normal. Atria Left atrium is mildly dilated. The right atrium size is normal. Aortic Valve The aortic valve is normal in structure. No aortic regurgitation is present. There is no aortic valvular stenosis. Mitral Valve The mitral valve is normal in structure. Mild mitral regurgitation. No evidence of mitral valve stenosis. Tricuspid Valve The tricuspid valve is normal in structure. Trace tricuspid regurgitation. [place] [address] 2 D/M-MODE ECHOCARDIOGRAM Name: TIERA SMYTH Jakub Room: [facility]#: [id number] Admission: 04/19/21 Attend Phys: Ramonita Ashford, Discharge: Date of : 45 Date of Service: 04/19/21 1602 Report #: [id number] The pulmonary valve is normal in structure. Trace pulmonic regurgitation. Great Vessels The aortic root is normal in size. IVC is not visualized. Pericardium There is no pericardial effusion. <Conclusion> The left ventricle is normal size. There is normal left ventricular wall thickness. Left ventricular systolic function is normal. The left ventricular ejection fraction is within the normal range. LVEF is 55-60%. This study is not technically sufficient to allow evaluation of the LV diastolic function due to atrial fibrillation. The right ventricle is normal size. Left atrium is mildly dilated. The aortic valve is normal in structure. The mitral valve is normal in structure. Mild mitral regurgitation. The tricuspid valve is normal in structure. Trace tricuspid regurgitation. There is no pericardial effusion. There is normal LV segmental wall motion. <ELECTRONICALLY SIGNED> By: Eduardo Chu MD, FACC 04/19/21 1602 160 160 Eduardo Chu MD, FACC /INF
== END ==
LOC: M.CRD 11:00 → M.LAB 11:04
PROVIDERS: ATTEND Nurse Practitioner
DX: I34.0 Nonrheumatic mitral (valve) insufficiency (principal); I48.0 Paroxysmal atrial fibrillation; F03.91 Unspecified dementia, unspecified severity, with behavioral disturbance; F41.9 Anxiety disorder, unspecified

== ENCOUNTER → 2021-07-14 | Outpatient (CLI) | payer MEDICARE | LOC: M.MRI 14:21 | PROVIDERS: ATTEND Psychiatry & Neurology Neuromuscular Medicine | DX: I67.82 Cerebral ischemia (principal); I48.0 Paroxysmal atrial fibrillation; F03.90 Unspecified dementia, unspecified severity, without behavioral disturbance, psychotic disturbance, mood disturbance, and anxiety; F17.201 Nicotine dependence, unspecified, in remission ==